=== PATIENT | male | born 1935 | race Two or more races ===

== ENCOUNTER 2023-12-17 13:59 | Emergency (ER) | payer OTHER ==
[~2023-12-17] VITALS: Ht 182.9 cm; Wt 82.0 kg
[2023-12-17] MEDS: LORazepam 2MG/ML-1ML VIAL IV ONE (14:30)
[2023-12-17] MEDS: SODIUM CHLORIDE 0.9% 1,000 ML IVB ONE (14:30)
[2023-12-17] MEDS: SODIUM CHLORIDE 0.9% 2,450 ML IV ONE (14:30)
[2023-12-17 14:33] LABS: Base Excess -8.4 mmol/L (-2.0-2.0)
[2023-12-17 14:35] LABS: Basophils # (auto) 0 10 ^3/uL (0-0.2); Basophils % (auto) 0.2 % (0.0-2.0); Eosinophils # (auto) 0 10 ^3/uL (0-0.8); Hematocrit 38.7 % (41.0-53.0); Hemoglobin 13.1 g/dL (13.5-17.5); Lymphocytes # (auto) 0.6 10 ^3/uL (0.4-5.4); Lymphocytes % (auto) 5.9 % (10.0-50.0); Mean Corpuscular Hemoglobin 31.3 pg (28.0-32.0); Mean Corpuscular Hgb Conc. 33.8 g/dL (32.0-36.0); Mean Corpuscular Volume 92.6 fL (80.0-100.0); Monocytes # (auto) 0.3 10 ^3/uL (0-1.3); Monocytes % (auto) 3.5 % (0.0-12.0); Neutrophils # (auto) 8.7 10 ^3/uL (1.6-8.6); Neutrophils % (auto) 90.4 % (37.0-80.0); Nucleated Red Blood Cells % 0.1 %; Red Blood Cells 4.18 10^6/uL (4.5-5.90); Red Cell Distribution Width 14.9 % (11.8-14.3); White Blood Cell 9.7 10^3/uL (4.4-10.8)
[2023-12-17 14:55] LABS: Urine Bacteria NONE SEEN /hpf (None Seen); Urine Blood 1+ /uL (Negative); Urine Clarity Clear (Clear); Urine Color Yellow (Yellow); Urine Hyaline Cast FEW /lpf (0 - 2); Urine Protein, UAD TRACE (Negative); Urine Specific Gravity 1.014 (1.001-1.035); Urine Urobilinogen Normal (Negative); Urine WBC 1 /hpf (0 - 3)
[2023-12-17 14:55] LABS: Alanine Aminotransferase 22 U/L (7-40); Alkaline Phosphatase 61 U/L (46-116); Anion Gap 15 (5-15); Aspartate Aminotransferase 46 U/L (13-40); BUN/Creatinine Ratio 12.5 (10.0-20.0); Blood Urea Nitrogen 31 mg/dL (9-23); Calcium 8.4 mg/dL (8.7-10.4); Carbon Dioxide 22 mmol/L (20-30); Chloride 106 mmol/L (98-107); Glucose 126 mg/dL (74-106); Magnesium 2.3 mg/dL (1.6-2.6); Potassium 3.1 mmol/L (3.5-5.1); Sodium 143 mmol/L (136-145)
[2023-12-17 14:56] LABS: Bilirubin, Total 2.5 mg/dL (0.2-1.0)
[2023-12-17 15:01] LABS: Amphetamine Screen, Urine Neg (NEGATIVE); Barbiturate Scree,Urine Neg (NEGATIVE); Benzodiazephine Screen, Urine Neg (NEGATIVE); Cocaine Screen, Urine Neg (NEGATIVE); Opiate Scree,Urine Neg (NEGATIVE)
[2023-12-17 15:02] LABS: Cannabinoid Screen, Urine Neg (NEGATIVE); Phencyclidine Screen, Urine Neg (NEGATIVE)
[2023-12-17] MEDS: SUCCINYLCHOLINE CHLORIDE 20 MG/ML 10ML VIAL IV ONE ×2 (15:12→15:13)
[2023-12-17] MEDS: ATROPINE SULFATE 1 MG/1 ML VIAL ONE (15:12)
[2023-12-17] MEDS: ETOMIDATE (2MG/ML) 20ML VIAL IV ONE ×2 (15:12→15:13)
[2023-12-17] MEDS: ATROPINE SULF 1 MG/10ml SYR IV ONE (15:13)
[2023-12-17] MEDS: DOPamine 1600MCG/ML D5W 250 ML IV SCH (15:14)
[2023-12-17 15:17] LABS: Lactic Acid w/Reflex 4.3 mmol/L (0.4-2.0)
[2023-12-17] MEDS: MIDAZOLAM DRIP 50 mg/50mL 50 ML IV SCH (15:18)
[2023-12-17] MEDS: MIDAZOLAM DRIP 50 mg/50mL 50 ML IV ONE (15:22)
[2023-12-17 15:23] LABS: Blood Alcohol < 3.0 mg/dL (<10)
[2023-12-17] MEDS: cefTRIAXone 1GM/50ML D5W 50 ML IV ONE (15:35)
[2023-12-17] MEDS: VANCOMYCIN 1GM/200ML 200 ML IV ONE (15:55)
[2023-12-17 16:21] LABS: INR 1.25 (0.9-1.15); Partial Thromboplastin Time 33.6 SEC (24.5-34.5); Prothrombin Time 12.9 sec (9.3-11.8)
[2023-12-17] MEDS: POTASSIUM CHL 20MEQ/100ML 100 ML IV SCH (17:02)
[2023-12-17] MEDS: levETIRAcetam 1000 mg/100ml 100 ML IV ONE ×2 (17:15)
[2023-12-17 17:53] VITALS: BP 107/66; PULSE 77; RESP 17; TEMP 81.9; O2SAT 100
== END 2023-12-17 18:12 | disposition short-term general hospital (02) ==
LOC: EDSEX 13:59 → ER 13:59 → EDBD 13:59 → ER 18:12
DX: R41.82 Altered mental status, unspecified (principal); I62.9 Nontraumatic intracranial hemorrhage, unspecified; E87.6 Hypokalemia; R06.89 Other abnormalities of breathing; I10 Essential (primary) hypertension; Z79.899 Other long term (current) drug therapy
CPT/HCPCS: 31500; 36415; 36556; 36600; 70450; 71045; 80053; 80307; 80320; 81001; 82140; 82805; 83605; 83735; 84484; 85025; 85610; 85730; 87040; 87070; 87205; 93005; 96361; 96365; 96367; 96368; 99291; J0330; J0461; J0696; J1953; J2060; J2250; J3370; J3480; J7030; J7040